=== PATIENT | male | born 1940 | race African-American/Black ===

== ENCOUNTER 2016-10-29 15:46 | Outpatient (CLI) | payer MEDICARE, MEDICAID | END 2016-10-29 15:47 | disposition home or self-care (01) | LOC: HPCALD 15:46 | PROVIDERS: ATTEND Family Medicine | DX: Z08 Encounter for follow-up examination after completed treatment for malignant neoplasm (principal); Z86.711 Personal history of pulmonary embolism | CPT/HCPCS: 36415; 85610 ==

== ENCOUNTER 2016-12-14 09:11 | Emergency (ER) | payer MEDICARE, MEDICAID ==
[2016-12-14] MEDS ORDERED: Adacel (T-DAP) 0.5 ML VIAL ONE (09:28)
[2016-12-14] MEDS ORDERED: Bacitracin Zinc 1 Packet ONE (09:38)
== END 2016-12-14 09:55 | disposition home or self-care (01) ==
LOC: BURERS 09:11
DX: S50.811A Abrasion of right forearm, initial encounter (principal); E78.5 Hyperlipidemia, unspecified; E78.00 Pure hypercholesterolemia, unspecified; I10 Essential (primary) hypertension; Z87.891 Personal history of nicotine dependence; Z79.899 Other long term (current) drug therapy; X58.XXXA Exposure to other specified factors, initial encounter
CPT/HCPCS: 90471; 90715

== ENCOUNTER 2017-02-03 13:44 | Outpatient (CLI) | payer MEDICARE, MEDICAID ==
[2017-02-03 14:12] LABS: INR-International Normal Ratio 2.1; Prothrombin Time 24.4 SEC (12.0-14.7)
[2017-02-03 14:18] LABS: Eosinophils 1 % (0-10); Hemoglobin 14.2 g/dL (14.0-18.0); Lymphocytes 45 % (21-51); MDiff Complete? YES; Mean Corpuscular HGB CONC 34.7 g/dL (32.0-36.0); Mean Corpuscular Hemoglobin 33.6 pg (27.0-31.0); Mean Corpuscular Volume 96.8 fl (80.0-94.0); Mean Platelet Volume 8.6 fL (7.4-10.4); Monocytes 10 % (0-10); Neutrophil 44 % (42-75); Platelet Count 131 thou/uL (130-400); RBC Distribution Width 12.6 % (11.5-14.5); Red Blood Cell (RBC) Count 4.22 mill/uL (4.70-6.10); White Blood Cell (WBC) Count 3.8 thou/uL (4.8-10.8)
[2017-02-03 14:30] LABS: ALT (SGPT) 16 U/L (0-55); AST (SGOT) 15 U/L (5-34); Albumin 4.2 g/dL (3.4-4.8); Alkaline Phosphatase 65 U/L (40-150); Anion Gap 12 mmol/L (10-20); BUN (Urea Nitrogen) 15 mg/dL (8.4-25.7); Bilirubin, Total 0.3 mg/dL (0.2-1.2); Calc. Creatinine Clearance 0 mL/min (70-130); Carbon Dioxide 24 mmol/L (23-31); Cardiac Risk 2.9 (Less than 4.5); Chloride 108 mmol/L (98-107); Cholesterol 177 mg/dL (< 200 Desired); Estimated GFR-MDRD 83; Globulin 3.1 g/dL (2.4-3.5); Glucose 87 mg/dL (83-110); HDL Cholesterol 62 mg/dL (>60 Neg Risk); LDL Cholesterol, Calculated 98 mg/dL; Potassium 3.9 mmol/L (3.5-5.1); Protein, Total 7.3 g/dL (5.8-8.1); Sodium 140 mmol/L (136-145); Triglycerides 85 mg/dL (Less than 150)
== END 2017-02-03 13:45 | disposition home or self-care (01) ==
LOC: HPCALD 13:44
PROVIDERS: ATTEND Family Medicine
DX: E78.5 Hyperlipidemia, unspecified (principal); E55.9 Vitamin D deficiency, unspecified; E83.52 Hypercalcemia; I10 Essential (primary) hypertension; Z86.711 Personal history of pulmonary embolism
CPT/HCPCS: 36415; 80053; 80061; 82306; 83970; 85025; 85610

== ENCOUNTER 2017-04-04 10:18 | Outpatient (CLI) | payer MEDICARE, MEDICAID ==
[2017-04-04 10:46] LABS: INR-International Normal Ratio 2.6; Prothrombin Time 28.9 SEC (12.0-14.7)
== END 2017-04-04 10:19 | disposition home or self-care (01) ==
LOC: HPCALD 10:18
PROVIDERS: ATTEND Family Medicine
DX: Z86.711 Personal history of pulmonary embolism (principal)
CPT/HCPCS: 36415; 85610

== ENCOUNTER 2017-05-14 09:25 | Outpatient (CLI) | payer MEDICARE, MEDICAID ==
[2017-05-14 11:15] LABS: Prothrombin Time 55.4 SEC (12.0-14.7)
[2017-05-14 11:16] LABS: INR-International Normal Ratio 5.8
== END 2017-05-14 09:26 | disposition home or self-care (01) ==
LOC: HPCALD 09:25
PROVIDERS: ATTEND Family Medicine
DX: Z86.711 Personal history of pulmonary embolism (principal)
CPT/HCPCS: 36415; 85610

== ENCOUNTER 2017-05-29 09:43 | Outpatient (CLI) | payer MEDICARE, MEDICAID ==
[2017-05-29 10:30] LABS: Prothrombin Time 32.6 SEC (12.0-14.7)
== END 2017-05-29 09:44 | disposition home or self-care (01) ==
LOC: HPCALD 09:43
PROVIDERS: ATTEND Family Medicine
DX: Z51.81 Encounter for therapeutic drug level monitoring (principal); Z86.711 Personal history of pulmonary embolism; Z79.01 Long term (current) use of anticoagulants
CPT/HCPCS: 36415; 85610

== ENCOUNTER 2022-07-04 09:39 | Inpatient (IN) | payer OTHER, MEDICARE, MEDICAID ==
[2022-07-04 10:57] LABS: #Eosinphils 0.3 thou/uL (0.0-0.7); #Lymphocytes 0.9 thou/uL (1.20-3.40); #Monocytes 0.4 thou/uL (0.11-0.59); #Neutrophils 3.3 thou/uL (1.40-6.50); %Basophils 0.8 % (0.0-1.0); %Eosinophils 5.1 % (0.0-10.0); %Lymphocytes 18.8 % (21.0-51.0); %Monocytes 8.1 % (0.0-10.0); %Neutrophils 67.3 % (42.0-75.0); Hemoglobin 11.6 g/dL (14.0-18.0); Mean Corpuscular HGB CONC 34.2 g/dL (32.0-36.0); Mean Corpuscular Volume 93.7 fL (78.0-98.0); Mean Platelet Volume 7.4 fL (7.4-10.4); Platelet Count 125 thou/uL (130-400); RBC Distribution Width 13.6 % (11.5-14.5); Red Blood Cell (RBC) Count 3.62 mill/uL (4.70-6.10); White Blood Cell (WBC) Count 4.9 thou/uL (4.8-10.8)
[2022-07-04 11:16] LABS: INR-International Normal Ratio 2.8
[2022-07-04 11:17] LABS: PTT 35.9 sec (22.9-36.1)
[2022-07-04 11:20] LABS: ALT (SGPT) 21 U/L (8-55); AST (SGOT) 19 U/L (5-34); Albumin 3.7 g/dL (3.4-4.8); Alkaline Phosphatase 75 U/L (40-110); Anion Gap 10 mmol/L (10-20); BUN (Urea Nitrogen) 15 mg/dL (8.4-25.7); Bilirubin, Total 0.2 mg/dL (0.2-1.2); Calc. Creatinine Clearance 0 mL/min (70-130); Calcium 10.6 mg/dL (7.8-10.44); Carbon Dioxide 29 mmol/L (23-31); Chloride 105 mmol/L (98-107); Estimated GFR 71; Globulin 3.5 g/dL (2.4-3.5); Glucose 104 mg/dL (83-110); Potassium 4.2 mmol/L (3.5-5.1); Protein, Total 7.2 g/dL (5.8-8.1); Sodium 140 mmol/L (136-145)
[2022-07-04 12:03] LABS: Bilirubin Negative (Negative); Blood, Urine Small (Negative); Clarity Clear (Clear); Glucose, Urine (Dipstick) Negative (Negative); Ketone, Urine Negative (Negative); Leukocyte Negative (Negative); Nitrite Negative (Negative); Protein, Urine (Dipstick) Negative (Neg-Trace); Urobilinogen 0.2 mg/dL (Less than 2); pH, Urine 5.5 (5.0-9.0)
[2022-07-04 12:13] LABS: RBC/HPF 0-3 HPF (0-3); WBC/HPF 0-3 HPF (0-3)
[2022-07-04 12:14] LABS: Bacteria/HPF 1+ HPF (None Seen); Squamous Epithelial None Seen HPF (0-3)
[2022-07-04] MEDS ORDERED: Ondansetron PF 4 MG/2 ML Vial ONE (13:56)
[2022-07-04] MEDS ORDERED: Morphine 4 MG/ML VIAL ONE (13:56)
[2022-07-04 14:28] LABS: SARS-CoV-2 NAA Rapid Test Not Detected (NotDetected)
[2022-07-04 14:59] VITALS: BMI 35.9
[2022-07-04] MEDS ORDERED: Morphine 4 MG/ML VIAL SLOW IVP PRN (17:28)
[2022-07-04] MEDS ORDERED: Ondansetron ODT 4 MG TAB SL PRN (17:30)
[2022-07-04] MEDS ORDERED: Ondansetron PF 4 MG/2 ML Vial IVP PRN (17:30)
[2022-07-04] MEDS ORDERED: Acetaminophen 325 MG TAB PO PRN (17:30)
[2022-07-04] MEDS ORDERED: tiZANidine HCl 4 MG TAB PO PRN (18:40)
[2022-07-04] MEDS: Phenytoin Extended Release 100 MG CAP PO SCH (20:51)
[2022-07-04] MEDS: Senokot 8.6 MG TAB PO SCH (20:51)
[2022-07-05] MEDS ORDERED: Ondansetron PF 4 MG/2 ML Vial IVP PRN (01:00)
[2022-07-05] MEDS ORDERED: Ondansetron ODT 4 MG TAB SL PRN (01:00)
[2022-07-05] MEDS ORDERED: Morphine 4 MG/ML VIAL ONE ×2 (02:29→09:05)
[2022-07-05] MEDS: Morphine 4 MG/ML VIAL SLOW IVP PRN ×2 (02:35→09:10)
[2022-07-05] MEDS ORDERED: Bisacodyl 5 MG TAB PO PRN (07:37)
[2022-07-05] MEDS: Fluticasone Propionate Nasal Spray 16 gm Bottle NASAL SCH (08:49)
[2022-07-05] MEDS: guaiFENesin ER 600 MG TAB PO SCH ×2 (08:51→20:58)
[2022-07-05] MEDS: Losartan Potassium 50 MG TAB PO SCH (08:51)
[2022-07-05] MEDS: Rosuvastatin 10 MG TAB PO SCH (08:51)
[2022-07-05] MEDS: Phenytoin Extended Release 100 MG CAP PO SCH ×2 (08:51→20:58)
[2022-07-05] MEDS: Furosemide 20 MG TAB PO SCH (08:52)
[2022-07-05] MEDS: Multivit, Therapeutic 1 TAB PO SCH (08:52)
[2022-07-05] MEDS: Ezetimibe 10 MG TAB PO SCH (08:52)
[2022-07-05] MEDS: Doxazosin 2 MG TAB PO SCH (08:52)
[2022-07-05] MEDS ORDERED: Amlodipine 10 MG TAB PO SCH (09:00)
[2022-07-05] MEDS ORDERED: Bisoprolol Fumarate/HCTZ 10 mg/6.25 mg Tablet PO SCH (09:00)
[2022-07-05] MEDS: Bisoprolol Fumarate 5 MG TAB PO SCH (09:09)
[2022-07-05] MEDS: Hydrochlorothiazide 25 MG TAB PO SCH (09:11)
[2022-07-05] MEDS: Warfarin Sodium 5 MG TAB PO SCH (17:14)
[2022-07-05] MEDS: Acetaminophen 325 MG TAB PO PRN (20:57)
[2022-07-05] MEDS: Senokot 8.6 MG TAB PO SCH (20:57)
[2022-07-06] MEDS ORDERED: Morphine 4 MG/ML VIAL ONE ×2 (02:03→16:47)
[2022-07-06] MEDS: Morphine 4 MG/ML VIAL SLOW IVP PRN ×2 (02:08→16:55)
[2022-07-06 05:31] LABS: INR-International Normal Ratio 2.1
[2022-07-06] MEDS: Bisoprolol Fumarate 5 MG TAB PO SCH (08:58)
[2022-07-06] MEDS: Acetaminophen 325 MG TAB PO PRN (08:59)
[2022-07-06] MEDS: Phenytoin Extended Release 100 MG CAP PO SCH ×2 (09:00→20:41)
[2022-07-06] MEDS: Rosuvastatin 10 MG TAB PO SCH (09:00)
[2022-07-06] MEDS: Doxazosin 2 MG TAB PO SCH (09:01)
[2022-07-06] MEDS: Ezetimibe 10 MG TAB PO SCH (09:01)
[2022-07-06] MEDS: guaiFENesin ER 600 MG TAB PO SCH ×2 (09:01→20:42)
[2022-07-06] MEDS: Hydrochlorothiazide 25 MG TAB PO SCH (09:02)
[2022-07-06] MEDS: Multivit, Therapeutic 1 TAB PO SCH (09:04)
[2022-07-06] MEDS: Losartan Potassium 50 MG TAB PO SCH (09:04)
[2022-07-06] MEDS: Furosemide 20 MG TAB PO SCH (09:04)
[2022-07-06] MEDS: Fluticasone Propionate Nasal Spray 16 gm Bottle NASAL SCH (09:04)
[2022-07-06] MEDS: Warfarin Sodium 5 MG TAB PO SCH (16:59)
[2022-07-06] MEDS: Senokot 8.6 MG TAB PO SCH (20:41)
[2022-07-06 22:01] LABS: Bilirubin Negative (Negative); Blood, Urine Large (Negative); Clarity Slightly Cloudy (Clear); Glucose, Urine (Dipstick) Negative (Negative); Ketone, Urine Negative (Negative); Leukocyte Negative (Negative); Nitrite Negative (Negative); Protein, Urine (Dipstick) Negative (Neg-Trace); Specific Gravity, Urine 1.015 (1.005-1.030); Squamous Epithelial 0-3 HPF (0-3); Urobilinogen 0.2 mg/dL (Less than 2); WBC/HPF 0-3 HPF (0-3); pH, Urine 5.5 (5.0-9.0)
[2022-07-06 22:02] LABS: Bacteria/HPF Rare-Few HPF (None Seen); Mucous/LPF Rare LPF (<2+)
[2022-07-07] MEDS ORDERED: Morphine 4 MG/ML VIAL ONE (00:44)
[2022-07-07] MEDS: Morphine 4 MG/ML VIAL SLOW IVP PRN (00:51)
[2022-07-07 05:04] LABS: INR-International Normal Ratio 1.9
[2022-07-07] MEDS: Acetaminophen 325 MG TAB PO PRN (09:28)
[2022-07-07] MEDS: Rosuvastatin 10 MG TAB PO SCH (09:30)
[2022-07-07] MEDS: Phenytoin Extended Release 100 MG CAP PO SCH (09:31)
[2022-07-07] MEDS: Doxazosin 2 MG TAB PO SCH (09:31)
[2022-07-07] MEDS: Bisoprolol Fumarate 5 MG TAB PO SCH (09:31)
[2022-07-07] MEDS: Hydrochlorothiazide 25 MG TAB PO SCH (09:38)
[2022-07-07] MEDS: Losartan Potassium 50 MG TAB PO SCH (09:40)
[2022-07-07] MEDS: Fluticasone Propionate Nasal Spray 16 gm Bottle NASAL SCH (09:41)
[2022-07-07] MEDS: guaiFENesin ER 600 MG TAB PO SCH (09:41)
[2022-07-07] MEDS: Ezetimibe 10 MG TAB PO SCH (09:41)
[2022-07-07] MEDS: Multivit, Therapeutic 1 TAB PO SCH (09:41)
[2022-07-07] MEDS: Furosemide 20 MG TAB PO SCH (09:43)
[2022-07-07 13:23] VITALS: BP 110/62; TEMP 98.8
[2022-07-07] MEDS ORDERED: Senokot 8.6 MG TAB PO SCH (21:00)
[2022-07-08] MEDS ORDERED: Polyethylene Glycol 3350 17 GM Packet PO SCH (09:00)
== END 2022-07-07 13:50 | disposition swing bed (61) | DRG 563 ==
LOC: BURERS 09:39 → BURMED 12:00
PROVIDERS: ADMIT Family Medicine; ATTEND Family Medicine
DX: S82.141A Displaced bicondylar fracture of right tibia, initial encounter for closed fracture (principal); I10 Essential (primary) hypertension; E78.5 Hyperlipidemia, unspecified; G40.909 Epilepsy, unspecified, not intractable, without status epilepticus; N40.0 Benign prostatic hyperplasia without lower urinary tract symptoms; Z74.09 Other reduced mobility; E78.00 Pure hypercholesterolemia, unspecified; S80.812A Abrasion, left lower leg, initial encounter; S80.811A Abrasion, right lower leg, initial encounter; Z20.822 Contact with and (suspected) exposure to COVID-19; Z86.718 Personal history of other venous thrombosis and embolism; Z79.01 Long term (current) use of anticoagulants; Z86.711 Personal history of pulmonary embolism; Z98.890 Other specified postprocedural states; Z87.891 Personal history of nicotine dependence; V48.1XXA Car passenger injured in noncollision transport accident in nontraffic accident, initial encounter; Z79.899 Other long term (current) drug therapy
CPT/HCPCS: 36415; 71045; 80053; 81001; 81003; 81015; 83880; 84484; 85025; 85610; 85730; 87086; 93005; 96374; 96375; J2270; J2405; U0002

== ENCOUNTER 2022-07-07 13:50 | Inpatient (IN) | payer OTHER, MEDICARE ==
[2022-07-07 15:02] VITALS: BMI 35.8
[2022-07-07] MEDS ORDERED: Bisacodyl 5 MG TAB PO PRN (15:12)
[2022-07-07] MEDS ORDERED: Bisacodyl 10 MG SUPP PR PRN (15:15)
[2022-07-07] MEDS ORDERED: HYDROcodone/Acetaminophen 5/325 mg Tablet PO PRN (15:15)
[2022-07-07] MEDS ORDERED: Calcium Carbonate 500 MG ChewTAB PO PRN (15:15)
[2022-07-07] MEDS ORDERED: Ondansetron ODT 4 MG TAB PO PRN (15:15)
[2022-07-07] MEDS ORDERED: tiZANidine HCl 4 MG TAB PO PRN (15:54)
[2022-07-07] MEDS: Warfarin Sodium 5 MG TAB PO SCH (18:36)
[2022-07-07] MEDS: HYDROcodone/Acetaminophen 5/325 mg Tablet PO PRN (19:30)
[2022-07-07] MEDS: Senokot 8.6 MG TAB PO SCH (22:01)
[2022-07-07] MEDS: Phenytoin Extended Release 100 MG CAP PO SCH (22:01)
[2022-07-07] MEDS: Famotidine 20 MG TAB PO SCH (22:01)
[2022-07-07] MEDS: guaiFENesin ER 600 MG TAB PO SCH (22:01)
[2022-07-08 04:54] LABS: INR-International Normal Ratio 1.8; Prothrombin Time 21.6 sec (12.0-14.7)
[2022-07-08] MEDS: HYDROcodone/Acetaminophen 5/325 mg Tablet PO PRN ×2 (05:33→12:12)
[2022-07-08] MEDS: Polyethylene Glycol 3350 17 GM Packet PO SCH (09:11)
[2022-07-08] MEDS: Senokot 8.6 MG TAB PO PRN (09:12)
[2022-07-08] MEDS: Bisoprolol Fumarate 5 MG TAB PO SCH (09:12)
[2022-07-08] MEDS: Rosuvastatin 10 MG TAB PO SCH (09:12)
[2022-07-08] MEDS: Furosemide 20 MG TAB PO SCH (09:13)
[2022-07-08] MEDS: Phenytoin Extended Release 100 MG CAP PO SCH ×2 (09:13→21:00)
[2022-07-08] MEDS: Famotidine 20 MG TAB PO SCH ×2 (09:13→21:01)
[2022-07-08] MEDS: Ezetimibe 10 MG TAB PO SCH (09:13)
[2022-07-08] MEDS: Losartan Potassium 50 MG TAB PO SCH (09:13)
[2022-07-08] MEDS: Doxazosin 2 MG TAB PO SCH (09:13)
[2022-07-08] MEDS: guaiFENesin ER 600 MG TAB PO SCH ×2 (09:13→21:01)
[2022-07-08] MEDS: Hydrochlorothiazide 25 MG TAB PO SCH (09:14)
[2022-07-08] MEDS: Vit B12/Folic Acid/B6/Aa No.15 [Glycotrol Capsule] PO SCH (09:18)
[2022-07-08] MEDS: Fluticasone Propionate Nasal Spray 16 gm Bottle NASAL SCH (09:23)
[2022-07-08] MEDS: Warfarin Sodium 5 MG TAB PO SCH (16:46)
[2022-07-08] MEDS: Senokot 8.6 MG TAB PO SCH (21:01)
[2022-07-09 05:06] LABS: INR-International Normal Ratio 1.7; Prothrombin Time 20.7 sec (12.0-14.7)
[2022-07-09] MEDS: Fluticasone Propionate Nasal Spray 16 gm Bottle NASAL SCH (09:00)
[2022-07-09] MEDS: Rosuvastatin 10 MG TAB PO SCH (09:01)
[2022-07-09] MEDS: Polyethylene Glycol 3350 17 GM Packet PO SCH (09:01)
[2022-07-09] MEDS: Phenytoin Extended Release 100 MG CAP PO SCH ×2 (09:01→20:43)
[2022-07-09] MEDS: HYDROcodone/Acetaminophen 5/325 mg Tablet PO PRN (09:02)
[2022-07-09] MEDS: Doxazosin 2 MG TAB PO SCH (09:02)
[2022-07-09] MEDS: Bisoprolol Fumarate 5 MG TAB PO SCH (09:02)
[2022-07-09] MEDS: Famotidine 20 MG TAB PO SCH ×2 (09:02→20:43)
[2022-07-09] MEDS: Ezetimibe 10 MG TAB PO SCH (09:02)
[2022-07-09] MEDS: Furosemide 20 MG TAB PO SCH (09:02)
[2022-07-09] MEDS: Senokot 8.6 MG TAB PO PRN (09:03)
[2022-07-09] MEDS: Hydrochlorothiazide 25 MG TAB PO SCH (09:03)
[2022-07-09] MEDS: Losartan Potassium 50 MG TAB PO SCH (09:03)
[2022-07-09] MEDS: guaiFENesin ER 600 MG TAB PO SCH ×2 (09:03→20:44)
[2022-07-09] MEDS: Vit B12/Folic Acid/B6/Aa No.15 [Glycotrol Capsule] PO SCH (09:04)
[2022-07-09] MEDS: Warfarin Sodium 5 MG TAB PO SCH (16:45)
[2022-07-09] MEDS ORDERED: Warfarin Sodium 2.5 MG TAB PO SCH ×2 (17:00)
[2022-07-09] MEDS: Senokot 8.6 MG TAB PO SCH (20:43)
[2022-07-10 05:02] LABS: INR-International Normal Ratio 1.9; Prothrombin Time 22.6 sec (12.0-14.7)
[2022-07-10 05:06] LABS: Hemoglobin 10.9 g/dL (14.0-18.0); Platelet Count 133 thou/uL (130-400)
[2022-07-10] MEDS: Doxazosin 2 MG TAB PO SCH (08:54)
[2022-07-10] MEDS: Bisoprolol Fumarate 5 MG TAB PO SCH (08:54)
[2022-07-10] MEDS: Phenytoin Extended Release 100 MG CAP PO SCH ×2 (08:55→20:56)
[2022-07-10] MEDS: Famotidine 20 MG TAB PO SCH ×2 (08:55→20:57)
[2022-07-10] MEDS: Rosuvastatin 10 MG TAB PO SCH (08:56)
[2022-07-10] MEDS: Ezetimibe 10 MG TAB PO SCH (08:57)
[2022-07-10] MEDS: Hydrochlorothiazide 25 MG TAB PO SCH (08:58)
[2022-07-10] MEDS: Furosemide 20 MG TAB PO SCH (08:58)
[2022-07-10] MEDS: Losartan Potassium 50 MG TAB PO SCH (09:00)
[2022-07-10] MEDS: Fluticasone Propionate Nasal Spray 16 gm Bottle NASAL SCH (09:00)
[2022-07-10] MEDS: guaiFENesin ER 600 MG TAB PO SCH ×2 (09:00→20:57)
[2022-07-10] MEDS: Polyethylene Glycol 3350 17 GM Packet PO SCH (09:01)
[2022-07-10] MEDS: Warfarin Sodium 5 MG TAB PO SCH (16:22)
[2022-07-10] MEDS ORDERED: Warfarin Sodium 2.5 MG TAB PO SCH (17:00)
[2022-07-10] MEDS: Senokot 8.6 MG TAB PO SCH (20:56)
[2022-07-10] MEDS: HYDROcodone/Acetaminophen 5/325 mg Tablet PO PRN (20:57)
[2022-07-11 04:59] LABS: Prothrombin Time 22.8 sec (12.0-14.7)
[2022-07-11] MEDS: Polyethylene Glycol 3350 17 GM Packet PO SCH ×2 (08:30→08:32)
[2022-07-11] MEDS: HYDROcodone/Acetaminophen 5/325 mg Tablet PO PRN ×2 (08:31→16:23)
[2022-07-11] MEDS: Doxazosin 2 MG TAB PO SCH (08:33)
[2022-07-11] MEDS: Bisoprolol Fumarate 5 MG TAB PO SCH (08:33)
[2022-07-11] MEDS: Phenytoin Extended Release 100 MG CAP PO SCH ×2 (08:33→20:35)
[2022-07-11] MEDS: Ezetimibe 10 MG TAB PO SCH (08:33)
[2022-07-11] MEDS: Senokot 8.6 MG TAB PO PRN (08:34)
[2022-07-11] MEDS: guaiFENesin ER 600 MG TAB PO SCH ×2 (08:34→20:36)
[2022-07-11] MEDS: Losartan Potassium 50 MG TAB PO SCH (08:35)
[2022-07-11] MEDS: Rosuvastatin 10 MG TAB PO SCH (08:35)
[2022-07-11] MEDS: Hydrochlorothiazide 25 MG TAB PO SCH (08:36)
[2022-07-11] MEDS: Famotidine 20 MG TAB PO SCH ×2 (08:36→20:36)
[2022-07-11] MEDS: Furosemide 20 MG TAB PO SCH (08:36)
[2022-07-11] MEDS: Fluticasone Propionate Nasal Spray 16 gm Bottle NASAL SCH (08:39)
[2022-07-11] MEDS ORDERED: Bisacodyl 10 MG SUPP PR PRN (14:45)
[2022-07-11] MEDS: Warfarin Sodium 5 MG TAB PO SCH (16:22)
[2022-07-11] MEDS ORDERED: Warfarin Sodium 2.5 MG TAB PO SCH (17:00)
[2022-07-11] MEDS: Senokot 8.6 MG TAB PO SCH (20:35)
[2022-07-12] MEDS: Acetaminophen 325 MG TAB PO PRN (04:41)
[2022-07-12 05:01] LABS: INR-International Normal Ratio 2.2; Prothrombin Time 24.5 sec (12.0-14.7)
[2022-07-12] MEDS: Rosuvastatin 10 MG TAB PO SCH (08:37)
[2022-07-12] MEDS: Polyethylene Glycol 3350 17 GM Packet PO SCH (08:37)
[2022-07-12] MEDS: Fluticasone Propionate Nasal Spray 16 gm Bottle NASAL SCH (08:37)
[2022-07-12] MEDS: Famotidine 20 MG TAB PO SCH ×2 (08:38→20:21)
[2022-07-12] MEDS: Ezetimibe 10 MG TAB PO SCH (08:38)
[2022-07-12] MEDS: guaiFENesin ER 600 MG TAB PO SCH ×2 (08:39→20:20)
[2022-07-12] MEDS: Hydrochlorothiazide 25 MG TAB PO SCH (08:39)
[2022-07-12] MEDS: Phenytoin Extended Release 100 MG CAP PO SCH ×2 (08:39→20:20)
[2022-07-12] MEDS: Bisoprolol Fumarate 5 MG TAB PO SCH (08:39)
[2022-07-12] MEDS: Furosemide 20 MG TAB PO SCH (08:40)
[2022-07-12] MEDS: Doxazosin 2 MG TAB PO SCH (08:41)
[2022-07-12] MEDS: Losartan Potassium 50 MG TAB PO SCH (08:41)
[2022-07-12] MEDS: Warfarin Sodium 5 MG TAB PO SCH (16:55)
[2022-07-12] MEDS ORDERED: Warfarin Sodium 2.5 MG TAB PO SCH (17:00)
[2022-07-12] MEDS: Senokot 8.6 MG TAB PO SCH (20:20)
[2022-07-13 05:59] LABS: INR-International Normal Ratio 2.3; Prothrombin Time 26.1 sec (12.0-14.7)
[2022-07-13] MEDS: Fluticasone Propionate Nasal Spray 16 gm Bottle NASAL SCH (08:53)
[2022-07-13] MEDS: Polyethylene Glycol 3350 17 GM Packet PO SCH ×2 (08:53→08:59)
[2022-07-13] MEDS: Losartan Potassium 50 MG TAB PO SCH (08:54)
[2022-07-13] MEDS: Famotidine 20 MG TAB PO SCH ×2 (08:54→20:17)
[2022-07-13] MEDS: Phenytoin Extended Release 100 MG CAP PO SCH ×2 (08:54→20:17)
[2022-07-13] MEDS: Doxazosin 2 MG TAB PO SCH (08:54)
[2022-07-13] MEDS: guaiFENesin ER 600 MG TAB PO SCH ×2 (08:55→20:17)
[2022-07-13] MEDS: Rosuvastatin 10 MG TAB PO SCH (08:55)
[2022-07-13] MEDS: Hydrochlorothiazide 25 MG TAB PO SCH (08:55)
[2022-07-13] MEDS: Furosemide 20 MG TAB PO SCH (08:55)
[2022-07-13] MEDS: Ezetimibe 10 MG TAB PO SCH (08:55)
[2022-07-13] MEDS: Bisoprolol Fumarate 5 MG TAB PO SCH (08:55)
[2022-07-13] MEDS: Warfarin Sodium 5 MG TAB PO SCH (16:28)
[2022-07-13] MEDS: Senokot 8.6 MG TAB PO SCH (20:17)
[2022-07-14 05:34] LABS: INR-International Normal Ratio 2.4; Prothrombin Time 26.8 sec (12.0-14.7)
[2022-07-14] MEDS: HYDROcodone/Acetaminophen 5/325 mg Tablet PO PRN ×2 (08:02→20:25)
[2022-07-14] MEDS: Fluticasone Propionate Nasal Spray 16 gm Bottle NASAL SCH (08:03)
[2022-07-14] MEDS: Doxazosin 2 MG TAB PO SCH (08:05)
[2022-07-14] MEDS: Phenytoin Extended Release 100 MG CAP PO SCH ×2 (08:05→20:28)
[2022-07-14] MEDS: Bisoprolol Fumarate 5 MG TAB PO SCH (08:06)
[2022-07-14] MEDS: guaiFENesin ER 600 MG TAB PO SCH ×2 (08:06→20:28)
[2022-07-14] MEDS: Hydrochlorothiazide 25 MG TAB PO SCH (08:06)
[2022-07-14] MEDS: Rosuvastatin 10 MG TAB PO SCH (08:06)
[2022-07-14] MEDS: Losartan Potassium 50 MG TAB PO SCH (08:06)
[2022-07-14] MEDS: Furosemide 20 MG TAB PO SCH (08:06)
[2022-07-14] MEDS: Ezetimibe 10 MG TAB PO SCH (08:06)
[2022-07-14] MEDS: Famotidine 20 MG TAB PO SCH ×2 (08:06→20:26)
[2022-07-14] MEDS: Polyethylene Glycol 3350 17 GM Packet PO SCH (08:18)
[2022-07-14] MEDS: Warfarin Sodium 5 MG TAB PO SCH (16:56)
[2022-07-14] MEDS: Senokot 8.6 MG TAB PO SCH (20:27)
[2022-07-15 05:34] LABS: INR-International Normal Ratio 2.4
[2022-07-15] MEDS: Ezetimibe 10 MG TAB PO SCH (07:30)
[2022-07-15] MEDS: Doxazosin 2 MG TAB PO SCH (07:31)
[2022-07-15] MEDS: HYDROcodone/Acetaminophen 5/325 mg Tablet PO PRN ×2 (07:31→20:47)
[2022-07-15] MEDS: Hydrochlorothiazide 25 MG TAB PO SCH (07:32)
[2022-07-15] MEDS: Rosuvastatin 10 MG TAB PO SCH (07:33)
[2022-07-15] MEDS: Bisoprolol Fumarate 5 MG TAB PO SCH (07:33)
[2022-07-15] MEDS: Famotidine 20 MG TAB PO SCH ×2 (07:33→20:45)
[2022-07-15] MEDS: guaiFENesin ER 600 MG TAB PO SCH ×2 (07:34→20:44)
[2022-07-15] MEDS: Furosemide 20 MG TAB PO SCH (07:34)
[2022-07-15] MEDS: Losartan Potassium 50 MG TAB PO SCH (07:34)
[2022-07-15] MEDS: Phenytoin Extended Release 100 MG CAP PO SCH ×2 (07:34→20:45)
[2022-07-15] MEDS: Polyethylene Glycol 3350 17 GM Packet PO SCH (07:35)
[2022-07-15] MEDS: Fluticasone Propionate Nasal Spray 16 gm Bottle NASAL SCH (07:35)
[2022-07-15] MEDS: Warfarin Sodium 5 MG TAB PO SCH (16:49)
[2022-07-15] MEDS: Senokot 8.6 MG TAB PO SCH (20:44)
[2022-07-16] MEDS: Ezetimibe 10 MG TAB PO SCH (07:51)
[2022-07-16] MEDS: Doxazosin 2 MG TAB PO SCH (07:51)
[2022-07-16] MEDS: Bisoprolol Fumarate 5 MG TAB PO SCH (07:51)
[2022-07-16] MEDS: Phenytoin Extended Release 100 MG CAP PO SCH ×2 (07:51→20:46)
[2022-07-16] MEDS: Losartan Potassium 50 MG TAB PO SCH (07:52)
[2022-07-16] MEDS: Rosuvastatin 10 MG TAB PO SCH (07:52)
[2022-07-16] MEDS: guaiFENesin ER 600 MG TAB PO SCH ×2 (07:52→20:49)
[2022-07-16] MEDS: Hydrochlorothiazide 25 MG TAB PO SCH (07:52)
[2022-07-16] MEDS: Famotidine 20 MG TAB PO SCH ×2 (07:52→20:46)
[2022-07-16] MEDS: Furosemide 20 MG TAB PO SCH (07:52)
[2022-07-16] MEDS: HYDROcodone/Acetaminophen 5/325 mg Tablet PO PRN ×2 (07:53→20:47)
[2022-07-16] MEDS: Polyethylene Glycol 3350 17 GM Packet PO SCH (07:54)
[2022-07-16] MEDS: Fluticasone Propionate Nasal Spray 16 gm Bottle NASAL SCH (07:59)
[2022-07-16] MEDS ORDERED: FLU VACC QS2022-23(65YR UP)/PF 240 MCG/0.7 ML SYRINGE IM ONE (11:30)
[2022-07-16] MEDS: Warfarin Sodium 5 MG TAB PO SCH (16:45)
[2022-07-16] MEDS: Senokot 8.6 MG TAB PO SCH (20:49)
[2022-07-17] MEDS: Fluticasone Propionate Nasal Spray 16 gm Bottle NASAL SCH (08:27)
[2022-07-17] MEDS: Rosuvastatin 10 MG TAB PO SCH (08:28)
[2022-07-17] MEDS: Famotidine 20 MG TAB PO SCH ×2 (08:28→20:04)
[2022-07-17] MEDS: Bisoprolol Fumarate 5 MG TAB PO SCH (08:28)
[2022-07-17] MEDS: Ezetimibe 10 MG TAB PO SCH (08:28)
[2022-07-17] MEDS: Doxazosin 2 MG TAB PO SCH (08:29)
[2022-07-17] MEDS: Losartan Potassium 50 MG TAB PO SCH (08:29)
[2022-07-17] MEDS: guaiFENesin ER 600 MG TAB PO SCH ×2 (08:29→20:04)
[2022-07-17] MEDS: Phenytoin Extended Release 100 MG CAP PO SCH ×2 (08:29→20:03)
[2022-07-17] MEDS: Polyethylene Glycol 3350 17 GM Packet PO SCH (14:25)
[2022-07-17] MEDS: Hydrochlorothiazide 25 MG TAB PO SCH (14:27)
[2022-07-17] MEDS: Furosemide 20 MG TAB PO SCH (14:28)
[2022-07-17] MEDS: Acetaminophen 325 MG TAB PO PRN ×2 (14:30→20:03)
[2022-07-17] MEDS: Warfarin Sodium 5 MG TAB PO SCH (16:45)
[2022-07-17] MEDS: Senokot 8.6 MG TAB PO SCH (20:03)
[2022-07-18 05:50] LABS: INR-International Normal Ratio 2.2; Prothrombin Time 24.6 sec (12.0-14.7)
[2022-07-18] MEDS: HYDROcodone/Acetaminophen 5/325 mg Tablet PO PRN (09:07)
[2022-07-18] MEDS: Hydrochlorothiazide 25 MG TAB PO SCH (09:09)
[2022-07-18] MEDS: Rosuvastatin 10 MG TAB PO SCH (09:10)
[2022-07-18] MEDS: Phenytoin Extended Release 100 MG CAP PO SCH ×2 (09:10→20:52)
[2022-07-18] MEDS: Ezetimibe 10 MG TAB PO SCH (09:11)
[2022-07-18] MEDS: Bisoprolol Fumarate 5 MG TAB PO SCH (09:11)
[2022-07-18] MEDS: Doxazosin 2 MG TAB PO SCH (09:11)
[2022-07-18] MEDS: guaiFENesin ER 600 MG TAB PO SCH ×2 (09:11→20:52)
[2022-07-18] MEDS: Furosemide 20 MG TAB PO SCH (09:12)
[2022-07-18] MEDS: Losartan Potassium 50 MG TAB PO SCH (09:13)
[2022-07-18] MEDS: Fluticasone Propionate Nasal Spray 16 gm Bottle NASAL SCH (09:13)
[2022-07-18] MEDS: Famotidine 20 MG TAB PO SCH ×2 (09:14→20:52)
[2022-07-18] MEDS: Polyethylene Glycol 3350 17 GM Packet PO SCH (09:14)
[2022-07-18] MEDS: Warfarin Sodium 5 MG TAB PO SCH (17:18)
[2022-07-18] MEDS: Senokot 8.6 MG TAB PO SCH (20:52)
[2022-07-18] MEDS: Acetaminophen 325 MG TAB PO PRN (20:52)
[2022-07-19 05:36] LABS: Platelet Count 235 thou/uL (130-400)
[2022-07-19] MEDS: Phenytoin Extended Release 100 MG CAP PO SCH ×2 (09:05→20:27)
[2022-07-19] MEDS: Rosuvastatin 10 MG TAB PO SCH (09:05)
[2022-07-19] MEDS: Bisoprolol Fumarate 5 MG TAB PO SCH (09:06)
[2022-07-19] MEDS: Ezetimibe 10 MG TAB PO SCH (09:06)
[2022-07-19] MEDS: Hydrochlorothiazide 25 MG TAB PO SCH (09:06)
[2022-07-19] MEDS: Furosemide 20 MG TAB PO SCH (09:07)
[2022-07-19] MEDS: Famotidine 20 MG TAB PO SCH ×2 (09:07→20:27)
[2022-07-19] MEDS: Doxazosin 2 MG TAB PO SCH (09:07)
[2022-07-19] MEDS: guaiFENesin ER 600 MG TAB PO SCH ×2 (09:07→20:27)
[2022-07-19] MEDS: Losartan Potassium 50 MG TAB PO SCH (09:14)
[2022-07-19] MEDS: Polyethylene Glycol 3350 17 GM Packet PO SCH (09:14)
[2022-07-19] MEDS: Fluticasone Propionate Nasal Spray 16 gm Bottle NASAL SCH (09:17)
[2022-07-19] MEDS: Warfarin Sodium 5 MG TAB PO SCH (16:40)
[2022-07-19] MEDS: HYDROcodone/Acetaminophen 5/325 mg Tablet PO PRN (16:42)
[2022-07-19] MEDS: Acetaminophen 325 MG TAB PO PRN (20:26)
[2022-07-19] MEDS: Senokot 8.6 MG TAB PO SCH (20:27)
[2022-07-20] MEDS: Bisoprolol Fumarate 5 MG TAB PO SCH (09:05)
[2022-07-20] MEDS: Rosuvastatin 10 MG TAB PO SCH (09:05)
[2022-07-20] MEDS: Phenytoin Extended Release 100 MG CAP PO SCH ×2 (09:05→20:52)
[2022-07-20] MEDS: Hydrochlorothiazide 25 MG TAB PO SCH (09:06)
[2022-07-20] MEDS: Famotidine 20 MG TAB PO SCH ×2 (09:07→20:52)
[2022-07-20] MEDS: Furosemide 20 MG TAB PO SCH (09:07)
[2022-07-20] MEDS: Doxazosin 2 MG TAB PO SCH (09:07)
[2022-07-20] MEDS: Ezetimibe 10 MG TAB PO SCH (09:07)
[2022-07-20] MEDS: guaiFENesin ER 600 MG TAB PO SCH ×2 (09:07→20:53)
[2022-07-20] MEDS: Fluticasone Propionate Nasal Spray 16 gm Bottle NASAL SCH (09:08)
[2022-07-20] MEDS: Losartan Potassium 50 MG TAB PO SCH (09:08)
[2022-07-20] MEDS: Polyethylene Glycol 3350 17 GM Packet PO SCH (09:08)
[2022-07-20] MEDS: Warfarin Sodium 5 MG TAB PO SCH (17:18)
[2022-07-20] MEDS: Acetaminophen 325 MG TAB PO PRN (17:25)
[2022-07-20] MEDS: Senokot 8.6 MG TAB PO SCH (20:53)
[2022-07-21 05:03] LABS: INR-International Normal Ratio 2.3; Prothrombin Time 25.9 sec (12.0-14.7)
[2022-07-21] MEDS: Fluticasone Propionate Nasal Spray 16 gm Bottle NASAL SCH (08:25)
[2022-07-21] MEDS: Bisoprolol Fumarate 5 MG TAB PO SCH (08:26)
[2022-07-21] MEDS: Hydrochlorothiazide 25 MG TAB PO SCH (08:27)
[2022-07-21] MEDS: Ezetimibe 10 MG TAB PO SCH (08:27)
[2022-07-21] MEDS: Furosemide 20 MG TAB PO SCH (08:27)
[2022-07-21] MEDS: guaiFENesin ER 600 MG TAB PO SCH ×2 (08:28→20:25)
[2022-07-21] MEDS: Phenytoin Extended Release 100 MG CAP PO SCH ×2 (08:28→20:24)
[2022-07-21] MEDS: Losartan Potassium 50 MG TAB PO SCH (08:28)
[2022-07-21] MEDS: Doxazosin 2 MG TAB PO SCH (08:28)
[2022-07-21] MEDS: Polyethylene Glycol 3350 17 GM Packet PO SCH (08:29)
[2022-07-21] MEDS: Famotidine 20 MG TAB PO SCH ×2 (08:29→20:25)
[2022-07-21] MEDS: Rosuvastatin 10 MG TAB PO SCH (08:30)
[2022-07-21] MEDS: Warfarin Sodium 5 MG TAB PO SCH (16:55)
[2022-07-21] MEDS: Acetaminophen 325 MG TAB PO PRN (16:56)
[2022-07-21] MEDS: Senokot 8.6 MG TAB PO SCH (20:25)
[2022-07-22] MEDS: Ezetimibe 10 MG TAB PO SCH (09:30)
[2022-07-22] MEDS: Furosemide 20 MG TAB PO SCH (09:30)
[2022-07-22] MEDS: Phenytoin Extended Release 100 MG CAP PO SCH ×2 (09:30→21:14)
[2022-07-22] MEDS: Doxazosin 2 MG TAB PO SCH (09:30)
[2022-07-22] MEDS: Bisoprolol Fumarate 5 MG TAB PO SCH (09:30)
[2022-07-22] MEDS: Hydrochlorothiazide 25 MG TAB PO SCH (09:31)
[2022-07-22] MEDS: Famotidine 20 MG TAB PO SCH ×2 (09:31→21:14)
[2022-07-22] MEDS: guaiFENesin ER 600 MG TAB PO SCH ×2 (09:31→21:14)
[2022-07-22] MEDS: Losartan Potassium 50 MG TAB PO SCH (09:32)
[2022-07-22] MEDS: Polyethylene Glycol 3350 17 GM Packet PO SCH (09:32)
[2022-07-22] MEDS: Rosuvastatin 10 MG TAB PO SCH (09:33)
[2022-07-22] MEDS: Fluticasone Propionate Nasal Spray 16 gm Bottle NASAL SCH (09:38)
[2022-07-22] MEDS: Warfarin Sodium 5 MG TAB PO SCH (17:08)
[2022-07-22] MEDS: Senokot 8.6 MG TAB PO SCH (21:14)
[2022-07-23] MEDS: Fluticasone Propionate Nasal Spray 16 gm Bottle NASAL SCH (08:41)
[2022-07-23] MEDS: Doxazosin 2 MG TAB PO SCH (08:42)
[2022-07-23] MEDS: Phenytoin Extended Release 100 MG CAP PO SCH ×2 (08:42→20:24)
[2022-07-23] MEDS: Famotidine 20 MG TAB PO SCH ×2 (08:42→21:08)
[2022-07-23] MEDS: Ezetimibe 10 MG TAB PO SCH (08:42)
[2022-07-23] MEDS: Bisoprolol Fumarate 5 MG TAB PO SCH (08:42)
[2022-07-23] MEDS: Furosemide 20 MG TAB PO SCH (08:43)
[2022-07-23] MEDS: Losartan Potassium 50 MG TAB PO SCH (08:43)
[2022-07-23] MEDS: guaiFENesin ER 600 MG TAB PO SCH ×2 (08:43→21:08)
[2022-07-23] MEDS: Hydrochlorothiazide 25 MG TAB PO SCH (08:43)
[2022-07-23] MEDS: Polyethylene Glycol 3350 17 GM Packet PO SCH (08:45)
[2022-07-23] MEDS: Rosuvastatin 10 MG TAB PO SCH (08:45)
[2022-07-23] MEDS: HYDROcodone/Acetaminophen 5/325 mg Tablet PO PRN (08:53)
[2022-07-23] MEDS: Warfarin Sodium 5 MG TAB PO SCH (16:43)
[2022-07-23] MEDS: Acetaminophen 325 MG TAB PO PRN (20:22)
[2022-07-23] MEDS: Senokot 8.6 MG TAB PO SCH (20:25)
[2022-07-24 05:04] LABS: INR-International Normal Ratio 2.3; Prothrombin Time 25.4 sec (12.0-14.7)
[2022-07-24] MEDS: Famotidine 20 MG TAB PO SCH ×2 (08:46→20:50)
[2022-07-24] MEDS: guaiFENesin ER 600 MG TAB PO SCH ×2 (08:46→20:50)
[2022-07-24] MEDS: Furosemide 20 MG TAB PO SCH (08:46)
[2022-07-24] MEDS: Phenytoin Extended Release 100 MG CAP PO SCH ×2 (08:46→20:50)
[2022-07-24] MEDS: Ezetimibe 10 MG TAB PO SCH (08:46)
[2022-07-24] MEDS: Bisoprolol Fumarate 5 MG TAB PO SCH (08:46)
[2022-07-24] MEDS: Hydrochlorothiazide 25 MG TAB PO SCH (08:47)
[2022-07-24] MEDS: Doxazosin 2 MG TAB PO SCH (08:47)
[2022-07-24] MEDS: Losartan Potassium 50 MG TAB PO SCH (08:48)
[2022-07-24] MEDS: Fluticasone Propionate Nasal Spray 16 gm Bottle NASAL SCH (08:48)
[2022-07-24] MEDS: Rosuvastatin 10 MG TAB PO SCH (08:49)
[2022-07-24] MEDS: Polyethylene Glycol 3350 17 GM Packet PO SCH (08:51)
[2022-07-24] MEDS: Warfarin Sodium 5 MG TAB PO SCH (16:52)
[2022-07-24] MEDS: HYDROcodone/Acetaminophen 5/325 mg Tablet PO PRN (16:57)
[2022-07-24] MEDS: Acetaminophen 325 MG TAB PO PRN (20:50)
[2022-07-24] MEDS: Senokot 8.6 MG TAB PO SCH (20:50)
[2022-07-25] MEDS: Fluticasone Propionate Nasal Spray 16 gm Bottle NASAL SCH (08:38)
[2022-07-25] MEDS: Hydrochlorothiazide 25 MG TAB PO SCH (08:39)
[2022-07-25] MEDS: Phenytoin Extended Release 100 MG CAP PO SCH ×2 (08:39→20:44)
[2022-07-25] MEDS: Famotidine 20 MG TAB PO SCH ×2 (08:40→20:47)
[2022-07-25] MEDS: Ezetimibe 10 MG TAB PO SCH (08:40)
[2022-07-25] MEDS: guaiFENesin ER 600 MG TAB PO SCH ×2 (08:41→20:47)
[2022-07-25] MEDS: Doxazosin 2 MG TAB PO SCH (08:41)
[2022-07-25] MEDS: Furosemide 20 MG TAB PO SCH (08:41)
[2022-07-25] MEDS: Bisoprolol Fumarate 5 MG TAB PO SCH (08:42)
[2022-07-25] MEDS: Losartan Potassium 50 MG TAB PO SCH (08:42)
[2022-07-25] MEDS: Rosuvastatin 10 MG TAB PO SCH (08:43)
[2022-07-25] MEDS: Polyethylene Glycol 3350 17 GM Packet PO SCH (08:43)
[2022-07-25] MEDS: Warfarin Sodium 5 MG TAB PO SCH (16:50)
[2022-07-25] MEDS: Acetaminophen 325 MG TAB PO PRN (16:55)
[2022-07-25] MEDS: Senokot 8.6 MG TAB PO SCH (20:45)
[2022-07-25] MEDS: HYDROcodone/Acetaminophen 5/325 mg Tablet PO PRN (20:45)
[2022-07-26 05:56] LABS: Hemoglobin 10.4 g/dL (14.0-18.0); Platelet Count 141 thou/uL (130-400)
[2022-07-26] MEDS: Acetaminophen 325 MG TAB PO PRN (08:10)
[2022-07-26] MEDS: Fluticasone Propionate Nasal Spray 16 gm Bottle NASAL SCH (08:11)
[2022-07-26] MEDS: Ezetimibe 10 MG TAB PO SCH (08:12)
[2022-07-26] MEDS: Famotidine 20 MG TAB PO SCH ×2 (08:12→20:03)
[2022-07-26] MEDS: Phenytoin Extended Release 100 MG CAP PO SCH ×2 (08:12→20:02)
[2022-07-26] MEDS: Furosemide 20 MG TAB PO SCH (08:12)
[2022-07-26] MEDS: Losartan Potassium 50 MG TAB PO SCH (08:12)
[2022-07-26] MEDS: Doxazosin 2 MG TAB PO SCH (08:12)
[2022-07-26] MEDS: guaiFENesin ER 600 MG TAB PO SCH ×2 (08:13→20:02)
[2022-07-26] MEDS: Bisoprolol Fumarate 5 MG TAB PO SCH (08:13)
[2022-07-26] MEDS: Hydrochlorothiazide 25 MG TAB PO SCH (08:13)
[2022-07-26] MEDS: Polyethylene Glycol 3350 17 GM Packet PO SCH (08:14)
[2022-07-26] MEDS: Rosuvastatin 10 MG TAB PO SCH (08:14)
[2022-07-26] MEDS: HYDROcodone/Acetaminophen 5/325 mg Tablet PO PRN (16:59)
[2022-07-26] MEDS: Warfarin Sodium 5 MG TAB PO SCH (17:01)
[2022-07-26] MEDS: Senokot 8.6 MG TAB PO SCH (20:03)
[2022-07-27 05:23] LABS: INR-International Normal Ratio 2.1; Prothrombin Time 23.7 sec (12.0-14.7)
[2022-07-27 06:02] VITALS: BP 124/74; TEMP 98.6
[2022-07-27] MEDS: Bisoprolol Fumarate 5 MG TAB PO SCH (08:56)
[2022-07-27] MEDS: Ezetimibe 10 MG TAB PO SCH (08:57)
[2022-07-27] MEDS: Phenytoin Extended Release 100 MG CAP PO SCH (08:58)
[2022-07-27] MEDS: Doxazosin 2 MG TAB PO SCH (08:58)
[2022-07-27] MEDS: Hydrochlorothiazide 25 MG TAB PO SCH (08:59)
[2022-07-27] MEDS: guaiFENesin ER 600 MG TAB PO SCH (09:00)
[2022-07-27] MEDS: Losartan Potassium 50 MG TAB PO SCH (09:00)
[2022-07-27] MEDS: Fluticasone Propionate Nasal Spray 16 gm Bottle NASAL SCH (09:01)
[2022-07-27] MEDS: Famotidine 20 MG TAB PO SCH (09:01)
[2022-07-27] MEDS: Furosemide 20 MG TAB PO SCH (09:01)
[2022-07-27] MEDS: Polyethylene Glycol 3350 17 GM Packet PO SCH (09:03)
[2022-07-27] MEDS: Rosuvastatin 10 MG TAB PO SCH (09:03)
== END 2022-07-27 10:55 | disposition home health service (06) | DRG 561 ==
LOC: BURMED 13:50
PROVIDERS: ADMIT Family Medicine; ATTEND Family Medicine
DX: S82.141D Displaced bicondylar fracture of right tibia, subsequent encounter for closed fracture with routine healing (principal); I10 Essential (primary) hypertension; E78.5 Hyperlipidemia, unspecified; Z86.718 Personal history of other venous thrombosis and embolism; Z79.01 Long term (current) use of anticoagulants; Z86.711 Personal history of pulmonary embolism; N40.0 Benign prostatic hyperplasia without lower urinary tract symptoms; G40.909 Epilepsy, unspecified, not intractable, without status epilepticus; T14.8XXD Other injury of unspecified body region, subsequent encounter; K59.00 Constipation, unspecified; R26.9 Unspecified abnormalities of gait and mobility; V47.6XXD Car passenger injured in collision with fixed or stationary object in traffic accident, subsequent encounter; Z87.891 Personal history of nicotine dependence; Z79.899 Other long term (current) drug therapy
CPT/HCPCS: 36415; 85014; 85018; 85049; 85610; 87811; 90471; 90662; G0008